=== PATIENT | male | born 1995 | race Asian ===

== ENCOUNTER 2017-03-27 18:02 | Emergency (ER) | payer OTHER ==
[~2017-03-27] VITALS: Ht 177.8 cm; Wt 75.0 kg
[2017-03-27] MEDS ORDERED: ACCUTANE PO (18:18)
[2017-03-27] MEDS ORDERED: NAPR500T PO (19:20)
[2017-03-27] MEDS ORDERED: CLEO300C2 PO (19:20)
[2017-03-27 19:26] VITALS: BP 139/65
== END 2017-03-27 19:36 | disposition home or self-care (01) ==
LOC: M ED 18:02
DX: L03.113 Cellulitis of right upper limb (principal); Z79.899 Other long term (current) drug therapy; F17.210 Nicotine dependence, cigarettes, uncomplicated